=== PATIENT | female | born 1975 | race Caucasian/White ===

== ENCOUNTER 2017-05-22 19:16 | Emergency (ER) | payer OTHER ==
[~2017-05-22] VITALS: Ht 175.3 cm; Wt 69.9 kg
[2017-05-22 19:18] VITALS: BP 150/92; PULSE 66; RESP 20; TEMP 98; O2SAT 100
[2017-05-22 19:36] VITALS: BP 141/88; PULSE 67; RESP 18; O2SAT 100
[2017-05-22] MEDS ORDERED: VALT500T PO (19:44)
--- NOTE | 2017-05-22 19:48 | PD ---
HPI Chief Complaint: Chest Pain Time Seen by Provider: 19:30 Travel History International Travel<30 days: No Contact w/Intl Traveler<30days: No Traveled to known affect area: No History of Present Illness HPI Patient is a 41-year-old female presents emergency Department with chest ice as well as her chest. Patient states been going on for the past 5 days. Initially started over the weekend and resolved spontaneously onset in the middle the night while she was sleeping. She states there is a tightness on the left side of her chest really underneath her breast without radiation, so she was mild shortness of breath but no nausea vomiting. She went to a local urgent care facility in [place] and she is currently moving from [place] and they did an EKG which showed "a subtle irregularity" she was recommended to go to the emergency department she declined at that time. She states she felt fine up until this morning when again the chest tightness came on the middle morning approximately 3:00 in the morning and just feels uncomfortable now. No nausea no vomiting nonsmoker no high blood pressure high cholesterol no diabetes. 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 No control pills no history of blood clots. There is some family history of heart disease in the sixth decade of life. PFSH Past Medical History Medical History: Denies Significant Hx Diminished Hearing: No Tetanus Vaccination: > 5 Years Influenza Vaccination: No ?: Unknown LMP: 05/18/17 Social History Alcohol Use: Yes (social) Tobacco Use: No Substance Use: No Allergies-Medications (Allergen,Severity, Reaction): Coded Allergies: No Known Allergies (Unverified , 05/22/17) Reported Meds & Prescriptions Reported Meds & Active Scripts Active Protonix (Pantoprazole Sodium) 40 Mg Tab 40 Mg PO DAILY Reported Valtrex (Valacyclovir HCl) 500 Mg Tab 500 Mg PO DAILY Review of Systems Except as stated in HPI: all other systems reviewed are Neg Physical Exam Narrative GENERAL: Well-developed well-nourished, fit physique in no apparent distress. SKIN: Focused skin assessment warm/dry. HEAD: Atraumatic. Normocephalic. EYES: Pupils equal and round. No scleral icterus. No injection or drainage. ENT: No nasal bleeding or discharge. Mucous membranes pink and moist. NECK: Trachea midline. No JVD. CARDIOVASCULAR: Regular rate and rhythm. No murmur appreciated. 2+ bilateral equal pulses in all 4 extremities. RESPIRATORY: No accessory muscle use. Clear to auscultation. Breath sounds equal bilaterally. GASTROINTESTINAL: Abdomen soft, non-tender, nondistended. Hepatic and splenic margins not palpable. MUSCULOSKELETAL: No obvious deformities. No clubbing. No cyanosis. No edema. NEUROLOGICAL: Awake and alert. No obvious cranial nerve deficits. Motor grossly within normal limits. Normal speech. PSYCHIATRIC: Appropriate mood and affect; insight and judgment normal. Data Data Last Documented VS Vital Signs Date Time Temp Pulse Resp B/P Pulse Ox O2 Delivery O2 Flow Rate FiO2 05/22/17 21:50 65 18 99 05/22/17 20:44 127/79 Room Air 05/22/17 19:18 98.0 Orders Electrocardiogram (05/22/17 ) Basic Metabolic Panel (Bmp) (05/22/17 19:54) Ckmb (Isoenzyme) Profile (05/22/17 19:54) Complete Blood Count With Diff (05/22/17 19:54) D-Dimer (05/22/17 19:54) Magnesium (Mg) (05/22/17 19:54) Prothrombin Time / Inr (Pt) (05/22/17 19:54) Act Partial Throm Time (Ptt) (05/22/17 19:54) Troponin I (05/22/17 19:54) Chest, Single Ap (05/22/17 19:54) Ecg Monitoring (05/22/17 19:54) Iv Access Insert/Monitor (05/22/17 19:54) Oximetry (05/22/17 19:54) Oxygen Administration (05/22/17 19:54) Sodium Chloride 0.9% Flush (Ns Flush) (05/22/17 20:00) Nitroglycerin Sl (Nitrostat Sl) (05/22/17 20:00) CKMB (05/22/17 20:10) CKMB% (05/22/17 20:10) Labs Laboratory Tests Test 05/22/17 20:10 White Blood Count 8.0 TH/MM3 Red Blood Count 4.14 MIL/MM3 Hemoglobin 13.5 GM/DL Hematocrit 39.2 % Mean Corpuscular Volume 94.7 FL Mean Corpuscular Hemoglobin 32.5 PG Mean Corpuscular Hemoglobin 34.4 % Concent Red Cell Distribution Width 11.7 % Platelet Count 215 TH/MM3 Mean Platelet Volume 7.6 FL Neutrophils (%) (Auto) 66.2 % Lymphocytes (%) (Auto) 25.1 % Monocytes (%) (Auto) 7.4 % Eosinophils (%) (Auto) 1.1 % Basophils (%) (Auto) 0.2 % Neutrophils # (Auto) 5.3 TH/MM3 Lymphocytes # (Auto) 2.0 TH/MM3 Monocytes # (Auto) 0.6 TH/MM3 Eosinophils # (Auto) 0.1 TH/MM3 Basophils # (Auto) 0.0 TH/MM3 CBC Comment DIFF FINAL Differential Comment Prothrombin Time 10.7 SEC Prothromb Time International 1.0 RATIO Ratio Activated Partial 25.2 SEC Thromboplast Time D-Dimer Quantitative (PE/DVT) LESS THAN 0.19 MG/L FEU Sodium Level 142 MEQ/L Potassium Level 3.6 MEQ/L Chloride Level 108 MEQ/L Carbon Dioxide Level 27.9 MEQ/L Anion Gap 6 MEQ/L Blood Urea Nitrogen 13 MG/DL Creatinine 0.99 MG/DL Estimat Glomerular Filtration 61 ML/MIN Rate Random Glucose 142 MG/DL Calcium Level 9.0 MG/DL Magnesium Level 2.0 MG/DL Total Creatine Kinase 151 U/L Creatine Kinase MB 2.5 NG/ML Troponin I LESS THAN 0.02 NG/ML MDM Medical Decision Making Medical Screen Exam Complete: Yes Emergency Medical Condition: Yes Interpretation(s) EKG shows normal sinus rhythm normal axis normal R-wave progression. No concerning ST segment changes, intervals within normal limits. This normal EKG. Differential Diagnosis ACS seems unlikely, PR seems unlikely, PE seems unlikely that the patient has been traveling in a car multiple times moving this month, muscle strain, sprain , GERD. Narrative Course Patient roomed in the emergency department, her onset early in the morning after lengthy flat which just GERD as a cause however the tightness she describes certainly warrants at least one troponin here in the emergency department, troponin is negative. Heart score is 1 low risk category. Initial troponin EKG negative. She is a healthy female who works out fairly regularly and until recently. She was given nitroglycerin in the emergency department had no response to that. She has been under a fair amount of stress according to her . The patient was offered observation status for consideration of stress testing and I told her the reason for this is that she has no primary care physician to follow up with. She would like to go home at this time. I' ve given her the names of several physicians in town at her request. Discussed symptomatic management home, they ask about reflux and I think it's a reasonable thing treated this time. Respiratory accident times at home discussed return to ED criteria and follow-up with a primary care physician at her earliest convenience. Diagnosis Primary Impression: Chest pain with low risk for cardiac etiology Referrals: Lamberto Garcia Sandra Lynn MD Moussly, Souheil MD Tso,Alexa GONZALES Med/Other Pt SpecificInfo: Prescription(s) given Scripts Pantoprazole (Protonix)40 Mg Tab40 Mg PO DAILY #30 TAB Ref 0 Prov:Otis Thacker MD 05/22/17 Disposition: 01 DISCHARGE HOME Condition: Stable Otis Thacker MD May 22, 2017 19:48
[2017-05-22] MEDS ORDERED: SODIUM CHLORIDE 0.9% FLUSH 10 ML FLUSH IVF PRN (20:00)
[2017-05-22] MEDS ORDERED: NITROGLYCERIN 0.4 MG SL 25 TABS/BTL SL ONE (20:00)
[2017-05-22 20:10] VITALS: O2SAT 100
[2017-05-22 20:21] LABS: AUTOMATED NEUTROPHIL # 5.3 TH/MM3 (1.8-7.7); BASOPHIL % 0.2 % (0.0-2.0); EOSINOPHIL # 0.1 TH/MM3 (0-0.4); EOSINOPHIL % 1.1 % (0.0-4.0); HEMATOCRIT 39.2 % (35.0-46.0); HEMO FLAGS DIFF FINAL; LYMPH % 25.1 % (9.0-44.0); MEAN CELL VOLUME 94.7 FL (80.0-100.0); MEAN CORPUSCULAR HEMOGLOBIN 32.5 PG (27.0-34.0); MEAN CORPUSCULAR HGB CONC 34.4 % (32.0-36.0); MONO % 7.4 % (0.0-8.0); NEUT % 66.2 % (16.0-70.0); PLATELET COUNT 215 TH/MM3 (150-450); RED BLOOD COUNT 4.14 MIL/MM3 (4.00-5.30); RED CELL DISTRIBUTION WIDTH 11.7 % (11.6-17.2)
[2017-05-22 20:29] LABS: CHLORIDE 108 MEQ/L (98-107); POTASSIUM 3.6 MEQ/L (3.5-5.1); SODIUM (NA) 142 MEQ/L (136-145)
[2017-05-22 20:32] LABS: ANION GAP 6 MEQ/L (5-15); BICARBONATE 27.9 MEQ/L (21.0-32.0); BLOOD UREA NITROGEN 13 MG/DL (7-18)
[2017-05-22 20:35] LABS: GLOMERULAR FILTRATION RATE 61 ML/MIN (>89)
[2017-05-22 20:38] LABS: CREATINE KINASE 151 U/L (26-192)
[2017-05-22 20:44] VITALS: BP 127/79; PULSE 64; RESP 18; O2SAT 100
[2017-05-22 20:47] LABS: APTT (PATIENT) 25.2 SEC (24.3-30.1); PROTHROMBIN TIME - PATIENT 10.7 SEC (9.8-11.6)
[2017-05-22 20:51] LABS: CKMB 2.5 NG/ML (0.5-3.6)
--- NOTE | 2017-05-22 20:56 | RADRPT ---
EXAM DATE/TIME: 05/22/2017 20:14 [facility] COMPARISON: No previous studies available for comparison. INDICATIONS : Chest pain and shortness of breath. MEDICAL HISTORY : None. SURGICAL HISTORY : Breast augmentation. ENCOUNTER: Initial ACUITY: 4 - 6 days PAIN SCORE: 8/10 LOCATION: Bilateral chest FINDINGS: A single view of the chest demonstrates the lungs to be symmetrically aerated without evidence of mas s, infiltrate or effusion. The cardiomediastinal contours are unremarkable. Osseous structures are intact. CONCLUSION: The lungs are clear. Barak Ramirez MD on May 22, 2017 at 20:53 Board Certified Radiologist. This report was verified electronically.
[2017-05-22] MEDS ORDERED: PROT40TA PO (21:23)
--- NOTE | 2017-05-23 13:29 | EKG ---
Date Performed: 05/22/2017 Time Performed: 19:45:22 PTAGE: 41 years EKG: Sinus rhythm MODERATE T-WAVE ABNORMALITY, CONSIDER ANTERIOR ISCHEMIA ABNORMAL ECG NO PREVIOUS TRACING DOCTOR: Evan Goodson Interpretating Date/Time 05/23/2017 13:23:44
== END 2017-05-22 21:51 | disposition home or self-care (01) ==
LOC: PHED 19:16
DX: R07.9 Chest pain, unspecified (principal); R94.31 Abnormal electrocardiogram [ECG] [EKG]
CPT/HCPCS: 71010; 80048; 82550; 82552; 83735; 84484; 85025; 85379; 85610; 85730; 93005; 99285